=== PATIENT | male | born 1950 | race Caucasian/White ===

== ENCOUNTER 2018-04-24 06:35 | Day surgery (SDC) | payer MEDICARE, OTHER ==
[~2018-04-24 06:35] MED LIST: Acetaminophen TAB* 325 MG PO PRN; Buffered Lidocaine 1% SYRIN* 1 ML/SYRINGE INTRADERM ONE; mitoMYcin PWD* 0.2 MG in Sterile Water for Inj* 1 ML OPHTHALMIC SCH
[2018-04-24] MEDS ORDERED: Midazolam* 1 MG/ML 2 ML VIAL (2 MG) ONE (07:22)
[2018-04-24 08:17] VITALS: BP 118/54
--- NOTE | 2018-04-24 09:05 | OP ---
OPERATIVE REPORT: DATE OF OPERATION: 04/24/18 DATE OF : 52 SURGEON: Mark Ponce MD ANESTHESIA: Local with MAC. PRE-OP DIAGNOSIS: Glaucoma, left eye, uncontrolled. POST-OP DIAGNOSIS: Glaucoma, left eye, uncontrolled. OPERATIVE PROCEDURE: XEN implant, left eye. COMPLICATIONS: None. DESCRIPTION OF PROCEDURE: The patient was given 2% lido with epinephrine topically. Lid speculum was placed. A paracentesis was made at the 2 o'clock position using the 75 blade. Anterior chamber irrigated with 1% non- preservative intracameral lidocaine approximately 0.2 cc. Provisc used to fill the anterior chamber. A clear corneal 1.8 mm incision was made at the 5 o' clock position using a keratome. The XEN implant was placed at the 11 o'clock position without difficulty using its flotation tender helper. The tip of the flotation tender helper contacted the anterior capsule upon withdrawing. The anterior chamber was then thoroughly irrigated with balanced salt solution. Mitomycin-C 0.2 mg/mL 0.1 mL was injected in the region of the XEN implant and then the anterior chamber thoroughly irrigated again with good bleb development. All wounds were checked and found to be watertight. Topical Maxitrol drops were given. [id number]/[facility] #: [id number] [facility]ITAL[facility]
[2018-04-24] MEDS ORDERED: Povidone Iodine 5% OPTH* 30 ML BTL ONE (09:44)
[2018-04-24] MEDS ORDERED: Lidocaine 2% EPI 1:200000 MPF*10-20 ML VIAL ONE (09:44)
[2018-04-24] MEDS ORDERED: Proparacaine 0.5% OPHTH.SOL* 15 ML BTL ONE (09:44)
[2018-04-24] MEDS ORDERED: Lidocaine 1%* 5 ML VIAL ONE (09:44)
[2018-04-24] MEDS ORDERED: Neomycin/Polymy/Dex OPTH.SUSP* MAXITROL 0.1% 5 ML ONE (09:44)
== END 2018-04-24 08:32 | disposition home or self-care (01) ==
LOC: OREAST 06:35
PROVIDERS: ATTEND Specialist
DX: H40.1122 Primary open-angle glaucoma, left eye, moderate stage (principal); H25.13 Age-related nuclear cataract, bilateral; I10 Essential (primary) hypertension; K21.9 Gastro-esophageal reflux disease without esophagitis
CPT/HCPCS: A9270-GY; C1725; J2250; J9280

== ENCOUNTER 2018-05-01 06:27 | Day surgery (SDC) | payer MEDICARE, OTHER ==
[~2018-05-01 06:27] MED LIST changes: +mitoMYcin 0.2 MG (0.02%) in Sterile Water for Inj* 1 ML SCH; -mitoMYcin PWD* 0.2 MG in Sterile Water for Inj* 1 ML OPHTHALMIC SCH
[2018-05-01] MEDS ORDERED: Midazolam* 1 MG/ML 2 ML VIAL (2 MG) ONE ×2 (07:35→07:46)
[2018-05-01] MEDS ORDERED: Lidocaine 2% EPI 1:200000 MPF*10-20 ML VIAL ONE (08:12)
[2018-05-01] MEDS ORDERED: Neomycin/Polymy/Dex OPTH.SUSP* MAXITROL 0.1% 5 ML ONE (08:12)
[2018-05-01] MEDS ORDERED: Proparacaine 0.5% OPHTH.SOL* 15 ML BTL ONE (08:12)
[2018-05-01] MEDS ORDERED: Povidone Iodine 5% OPTH* 30 ML BTL ONE (08:12)
[2018-05-01] MEDS ORDERED: Lidocaine 1%* 5 ML VIAL ONE (08:12)
[2018-05-01] MEDS ORDERED: Carbachol 0.01% OPH.SOL* 1.5 ML OPHTH.SOLN ONE (08:13)
[2018-05-01 08:58] VITALS: BP 114/61
--- NOTE | 2018-05-01 10:57 | OP ---
OPERATIVE REPORT: DATE OF OPERATION: 05/01/18 DATE OF : 52 SURGEON: Mark Ponce MD. ANESTHESIA: Local with MAC. PRE-OP DIAGNOSIS: Uncontrolled glaucoma, right. OPERATIVE PROCEDURE: XEN implant, right. COMPLICATIONS: None. DESCRIPTION OF PROCEDURE: The patient was prepped and draped in usual sterile fashion. Lid speculum was placed. Paracentesis made at the 11 o'clock position with a 75 blade. Anterior chamber irrigat ed with Miostat and then 1% non- preservative intracameral lidocaine and then followed by Provisc. 1 .8 mm clear corneal incision was made at the 7 o'clock position. The stent was placed at the 1 o'pamela ck position without any difficulties using Utrata. Anterior chamber irrigated with balanced salt neris ution. Topical Maxitrol drops were given. [id number]/[facility] #: [id number]
== END 2018-05-01 08:30 | disposition home or self-care (01) ==
LOC: OREAST 06:27
PROVIDERS: ATTEND Specialist
DX: H40.1113 Primary open-angle glaucoma, right eye, severe stage (principal); H25.13 Age-related nuclear cataract, bilateral; K21.9 Gastro-esophageal reflux disease without esophagitis; E78.00 Pure hypercholesterolemia, unspecified; J30.2 Other seasonal allergic rhinitis
CPT/HCPCS: A9270-GY; C1725; J2250; J9280